=== PATIENT | male | born 1990 | race Caucasian/White ===

== ENCOUNTER 2016-07-31 09:35 | Emergency (ER) | payer OTHER ==
[~2016-07-31] VITALS: Ht 190.5 cm; Wt 145.1 kg
--- NOTE | 2016-07-31 09:58 | ER.PDOC ---
General Chief Complaint: Requesting Medical Care Stated Complaint: PANIC ATTACK Time seen by MD: 09:51 Source: patient Exam Limitations: no limitations History of Present Illness Initial Comments Pt with h/o acid reflux who deveoped reflux last night after spicy meal and as a consequence he also got panicky because of a sensation of throat closing Timing/Duration: this morning Review of Systems Constitutional: see HPI EENTM: see HPI Respiratory: see HPI Cardiovascular: see HPI Gastrointestinal: see HPI Genitourinary: see HPI Musculoskeletal: see HPI Skin: see HPI Psychiatric/Neurological: see HPI Physical Exam General Appearance: No acute distress, Alert EENT: No nystagmus, PERRLA, EOM's intact, NML ENT inspection, Pharynx nml, NML gag reflex Neck: Non-Tender, Full Range of Motion, Supple, Normal Inspection Respiratory: chest non-tender, lungs clear, normal breath sounds, no respiratory distress, no accessory muscle use Cardiovascular: Normal Peripheral Pulses, Regular Rate, Rhythm, No Edema, No Gallop, No JVD, No Murmur Gastrointestinal: Normal Bowel Sounds, No Organomegaly, No Pulsatile Mass, Non Tender, Soft Extremities: Non-Tender, Normal Range of Motion, No Evidence of Trauma, No Edema Neurological/Psychiatric: Alert, Normal Mood/Affect, Calm, check pilot II-XII NML as Tested, Oriented x 3 Appearance/Memory/Insight: Appropriate Appearance, Appropriate Insight, Neat, No Memory Impairment Behavior/Eye Contact/Speech: Cooperative, Good Eye Contact, Normal Speech Thoughts/Hallucinations: Normal Thought Pattern, No Apparent Hallucination Skin: Normal Color, Warm/Dry Departure Time of Disposition: 10:03 Impression: Primary Impression: Acid reflux disease Additional Impression: Anxiety attack Condition: Stable Patient Instructions: Diet for Gastroesophageal Reflux Disease, Child, Easy-to- Read Referrals: PCP,UNKNOWN (PCP) PRIMARY CARE PROVIDER [place] FRANCIS MD July 31, 2016 09:58
[2016-07-31] MEDS ORDERED: DONNATAL ELIXIR PO STA (10:06)
[2016-07-31] MEDS ORDERED: MYLANTA PO STA (10:06)
[2016-07-31] MEDS ORDERED: LIDOCAINE VISCOUS MM STA (10:06)
[2016-07-31] MEDS ORDERED: ATIVAN PO STA (10:06)
[2016-07-31] MEDS ORDERED: LIDOCAINE VISCOUS ONE (10:13)
[2016-07-31] MEDS ORDERED: MYLANTA ONE (10:14)
[2016-07-31] MEDS ORDERED: DONNATAL ELIXIR ONE (10:14)
[2016-07-31] MEDS ORDERED: ATIVAN ONE (10:14)
[2016-07-31 10:20] VITALS: BP 133/72
== END 2016-07-31 10:26 | disposition home or self-care (01) ==
LOC: ER 09:35
DX: K21.9 Gastro-esophageal reflux disease without esophagitis (principal); F41.9 Anxiety disorder, unspecified
CPT/HCPCS: 99284; J3490 ×2

== ENCOUNTER 2019-04-04 16:48 | Emergency (ER) | payer BC ==
[~2019-04-04] VITALS: Ht 190.5 cm; Wt 149.7 kg
[2019-04-04 16:58] VITALS: BP 140/97
[2019-04-04 17:05] VITALS: BP 140/97
--- NOTE | 2019-04-04 17:21 | ER.PDOC ---
General Chief Complaint: Earache Stated Complaint: SORE THROAT Time seen by MD: 17:15 Source: patient, family Exam Limitations: no limitations, clinical condition History of Present Illness Initial Comments sore throat and earache and fever x 3 days Timing/Duration: other Associated Symptoms: fever/chills, mod sore throat, earache (L) Severity: moderate Allergies: Coded Allergies: No Known Allergies (Unverified , 07/31/16) Past Medical History Medical History: no pertinent history Surgical History: no surgical history Social History Alcohol Use: occassionally Drug Use: none Constitutional: see HPI Eyes: no symptoms reported Ears: see HPI Nose: no symptoms reported Mouth: no symptoms reported Throat: see HPI Respiratory: no symptoms reported Cardiovascular: no symptoms reported Gastrointestinal: no symptoms reported Musculoskeletal: no symptoms reported Skin: no symptoms reported Neurological: no symptoms reported All Other Systems: Reviewed and Negative Physical Exam General Appearance: alert, mild distress Head/Neck: head nml inspection, neck nml inspection Eyes: eyes nml inspection Mouth: lips, gums nml Throat: pharyngeal erythema Ears/Nose: TM erythema Respiratory: no resp. distress, lungs clear CVS: reg. rate & rhythm, heart sounds nml Abdomen: non-tender Extremities: non-tender Skin Exam: Normal Color, Warm/Dry NEURO/PSYCH: oriented X3, mood/effect nml Results/Orders Results/Orders Orders - MIGUEL MOSES [employer] Strep Screen (04/04/19 17:19) Urine Culture (04/04/19 16:55) Vital Signs Date Time Temp Pulse Resp B/P (MAP) Pulse Ox O2 Delivery O2 Flow Rate FiO2 04/04/19 17:47 142/94 (110) 04/04/19 17:05 98.6 122 18 04/04/19 16:58 98.6 122 18 97 04/04/19 16:58 98.6 122 18 140/97 (111) 97 Laboratory Tests Test 04/04/19 17:23 Group A Streptococcus Screen NEGATIVE (NEGATIVE) Departure Time of Disposition: 17:30 Disposition: 01 HOME, SELF-CARE Impression: Primary Impression: Otitis media Qualified Codes: H66.93 - Otitis media, unspecified, bilateral Condition: Stable Patient Instructions: Otitis Media, Adult, [id number] Referrals: PCP,UNKNOWN (PCP) PRIMARY CARE PROVIDER Additional Instructions: Augmentin 875 mg once by mouth twice a day x 10 days 20 #. Return if symptoms worsen. See PCP as needed Duration or Time Spent with Pa: 15 minutes Return to Work/School Can a patient return to work?: No Can a patient return to school: No MIGUEL MOSES NP Apr 04, 2019 17:21
[2019-04-04 17:47] VITALS: BP 142/94
== END 2019-04-04 17:48 | disposition home or self-care (01) ==
LOC: ER 16:48
DX: H66.92 Otitis media, unspecified, left ear (principal)
CPT/HCPCS: 87070; 87077; 87086; 87186; 87880; 99283; 99284